=== PATIENT | male | born 1945 | race Caucasian/White ===

== ENCOUNTER 2021-08-05 11:17 | Emergency (ER) | payer OTHER ==
[2021-08-05 12:56] LABS: RED BLOOD COUNT 3.69 M/UL (4.20-5.50); WHITE BLOOD COUNT 6.7 K/UL (4.5-11.0)
[2021-08-05 13:21] LABS: BUN/CREATININE RATIO 13 (0-10)
== END 2021-08-05 16:45 | disposition home or self-care (01) ==
LOC: ER1 11:17
PROVIDERS: Physician Assistant
DX: E11.65 Type 2 diabetes mellitus with hyperglycemia (principal); Z79.4 Long term (current) use of insulin; Z88.2 Allergy status to sulfonamides
CPT/HCPCS: 80053; 81001; 82009; 82550; 82553; 82962; 83874; 84484; 85025; 93005; 96374; 99285

== ENCOUNTER → 2021-12-13 | Outpatient (CLI) | payer OTHER, MEDICARE ==
[2021-12-13 12:06] LABS: HEMOGLOBIN 7.6 gm/dl (14.0-17.5)
[2021-12-14 15:12] LABS: HEMATOCRIT 25.1 % (37.5-51.0)
== END ==
LOC: LAB 11:35
PROVIDERS: Internal Medicine Hematology & Oncology
DX: D64.9 Anemia, unspecified (principal); C18.4 Malignant neoplasm of transverse colon
CPT/HCPCS: 36415; 82747; 85014; 85018; 86850; 86900; 86901; 86920; P9016

== ENCOUNTER → 2021-12-14 | Outpatient (CLI) | payer OTHER, MEDICARE ==
[~2021-12-14] VITALS: Ht 185.4 cm; Wt 85.3 kg
== END ==
LOC: OPSV 09:00
DX: D64.9 Anemia, unspecified (principal); C18.9 Malignant neoplasm of colon, unspecified
CPT/HCPCS: 36430; 96375; J1940; P9016

== ENCOUNTER → 2022-01-03 | Day surgery (SDC) | payer OTHER, MEDICARE ==
[~2022-01-03] MED LIST: AMARYL4 MG PO; IBUPROFEN800 MG PO; NESINA12.5 MG PO; ONE-A-DAY MEN'1 EAC3 PO; SOLIQUA 100 UNIT3 ML SQ; ZOCOR40 MG PO
== END | disposition home or self-care (01) ==
LOC: OR 05:26
DX: C18.9 Malignant neoplasm of colon, unspecified (principal); C22.8 Malignant neoplasm of liver, primary, unspecified as to type; Z20.822 Contact with and (suspected) exposure to COVID-19; Z88.4 Allergy status to anesthetic agent; Z88.2 Allergy status to sulfonamides
CPT/HCPCS: 71045; 77001; 82962; C1769; C1788; J0690; J1642; J2001; J2405; J2704; J7040; J7120

== ENCOUNTER → 2022-01-23 | Outpatient (CLI) | payer OTHER, MEDICARE | LOC: NM 09:30 | DX: C18.4 Malignant neoplasm of transverse colon (principal); C79.51 Secondary malignant neoplasm of bone; D50.9 Iron deficiency anemia, unspecified; K90.9 Intestinal malabsorption, unspecified | CPT/HCPCS: 78306; A9503 ==